=== PATIENT | female | born 1970 | race Caucasian/White ===

== ENCOUNTER 2020-07-25 10:42 | Outpatient (CLI) | payer BC | END 2020-07-25 10:43 | disposition home or self-care (01) | LOC: CSHMAMMO 10:42 | PROVIDERS: ATTEND Internal Medicine Endocrinology, Diabetes & Metabolism | DX: Z12.31 Encounter for screening mammogram for malignant neoplasm of breast (principal) | CPT/HCPCS: 77063; 77067 ==

== ENCOUNTER 2021-12-29 08:22 | Outpatient (CLI) | payer BC | END 2021-12-29 08:23 | disposition home or self-care (01) | LOC: CSHCT 08:22 | PROVIDERS: ATTEND Urology | DX: N39.46 Mixed incontinence (principal); N39.0 Urinary tract infection, site not specified; N13.70 Vesicoureteral-reflux, unspecified; Z98.890 Other specified postprocedural states | CPT/HCPCS: 74178 ==

== ENCOUNTER 2024-05-07 08:21 | Outpatient (CLI) | payer BC | END 2024-05-07 08:22 | disposition home or self-care (01) | LOC: CSHMRI 08:21 | PROVIDERS: ATTEND Family Medicine | DX: M25.552 Pain in left hip (principal); G89.29 Other chronic pain ==